=== PATIENT | female | born 1965 | race African-American/Black ===

== ENCOUNTER 2019-02-10 18:53 | Emergency (ER) | payer BC ==
[~2019-02-10] VITALS: Ht 165.1 cm; Wt 104.0 kg
[~2019-02-10 18:53] MED LIST: SLOW FE PO
[2019-02-10 21:26] LABS: BASOPHILS % 0.4 % (0.0-2.0); EOSINOPHILS % 0.7 % (0.0-5.0); HEMATOCRIT. 40.9 % (36.0-48.0); HEMOGLOBIN. 13.3 g/dL (12.0-16.0); LYMPHOCYTES % 17.1 % (20.0-50.0); MEAN CORPUSCULAR HEMOGLOBIN 25.3 pg (28.0-32.0); MEAN CORPUSCULAR VOLUME 77.9 fL (81.0-99.0); MEAN PLATELET VOLUME 8.9 fl (7.4-10.4); MONOCYTES % 4.7 % (2.0-8.0); NEUTROPHILS % 77.1 % (40.0-76.0); PLATELET 220 x1000/uL (130-400); RED BLOOD CELL COUNT 5.25 mill/uL (4.2-5.4); RED CELL DISTRIBUTION WIDTH 18.3 % (11.6-14.6)
[2019-02-10 21:33] LABS: CHLORIDE 105 mEq/L (98-107)
[2019-02-10 22:02] VITALS: BP 135/89
== END 2019-02-10 22:03 | disposition home or self-care (01) ==
LOC: ER 18:53
DX: F41.9 Anxiety disorder, unspecified (principal); R00.2 Palpitations; R07.9 Chest pain, unspecified; Z91.018 Allergy to other foods; Z88.0 Allergy status to penicillin; Z91.010 Allergy to peanuts; Z91.013 Allergy to seafood
CPT/HCPCS: 36415; 71045; 84443; 84484; 93005; 99284

== ENCOUNTER 2022-09-19 20:23 | Emergency (ER) | payer BC ==
[~2022-09-19] VITALS: Ht 162.6 cm; Wt 97.5 kg
[2022-09-19 20:38] VITALS: O2SAT 100
[2022-09-19 21:46] VITALS: BP 140/82; PULSE 95; RESP 16; TEMP 98.9
== END 2022-09-19 21:47 | disposition home or self-care (01) ==
LOC: ER 20:23
DX: U07.1 COVID-19 (principal); Z88.0 Allergy status to penicillin; Z91.010 Allergy to peanuts; Z91.013 Allergy to seafood; Z91.018 Allergy to other foods
CPT/HCPCS: 99283; 87426; C9803

== ENCOUNTER 2023-06-26 17:48 | Emergency (ER) | payer BC ==
[~2023-06-26] VITALS: Ht 162.6 cm; Wt 99.0 kg
[2023-06-26 18:03] VITALS: O2SAT 98
[2023-06-26 18:54] LABS: BASOPHILS % 0.3 % (0.0-2.0); DIFFERENTIAL COMMENT 0; EOSINOPHILS % 0.9 % (0.0-5.0); HEMATOCRIT. 37.5 % (36.0-48.0); HEMOGLOBIN. 12.4 g/dL (12.0-16.0); LYMPHOCYTES % 24.6 % (20.0-50.0); MEAN CORPUSCULAR HGB CONC 32.9 g/dL (31.0-37.0); MEAN PLATELET VOLUME 8.7 fl (7.4-10.4); MONOCYTES % 6.1 % (2.0-8.0); NEUTROPHILS % 68.1 % (40.0-76.0); PLATELET 238 x1000/uL (130-400); RED BLOOD CELL COUNT 4.75 mill/uL (4.2-5.4); RED CELL DISTRIBUTION WIDTH 17.7 % (11.6-14.6); WHITE BLOOD COUNT 8.8 x1000/uL (4.5-11.0)
[2023-06-26 19:15] LABS: ALANINE AMINOTRANSFERASE 24 IU/L (10-49); ALBUMIN 4.9 g/dL (3.2-4.8); ASPARTATE AMINOTRANSFERASE 30 IU/L (<34); BILIRUBIN TOTAL 0.4 mg/dL (0.1-1.0); CALCIUM 9.1 mg/dL (8.7-10.4); CARBON DIOXIDE 27 mEq/L (21-32); CHLORIDE 103 mEq/L (98-107); CREATININE 0.8 mg/dL (0.6-1.0); GLUCOSE 98 mg/dL (70-105); POTASSIUM 3.5 mEq/L (3.5-5.1); PROTEIN TOTAL 8.5 g/dL (6.0-8.3); SODIUM 138 mEq/L (136-145); UREA NITROGEN BLOOD 15 mg/dL (9-23)
[2023-06-26 19:17] LABS: TROPONIN I HIGH SENSITIVITY < 4 ng/L (3.0-34)
[2023-06-26 20:23] LABS: CLARITY URINE CLEAR (CLEAR); COLOR URINE YELLOW (YELLOW); GLUCOSE URINE NEGATIVE (NEGATIVE); KETONES URINE TRACE (NEGATIVE); LEUKOCYTE ESTERASE URINE NEGATIVE (NEGATIVE); NITRITE URINE NEGATIVE (NEGATIVE); OCCULT BLOOD URINE NEGATIVE (NEGATIVE); PH URINE 5.5 (4.5-8.0); PROTEIN URINE NEGATIVE (NEGATIVE); SPECIFIC GRAVITY URINE 1.005 (1.005-1.030); UROBILINOGEN URINE 0.2 E.U./dL (0.2-1.0)
[2023-06-26 21:24] VITALS: BP 152/85; PULSE 93; RESP 20; TEMP 98.4
== END 2023-06-26 21:30 | disposition home or self-care (01) ==
LOC: ER 17:48
DX: F41.9 Anxiety disorder, unspecified (principal); Z88.0 Allergy status to penicillin; Z98.890 Other specified postprocedural states; Z91.010 Allergy to peanuts; Z91.018 Allergy to other foods
CPT/HCPCS: 36415; 71045; 80053; 81003; 84484; 85025; 93005; 99285